=== PATIENT | female | born 1940 | race African-American/Black ===

== ENCOUNTER 2025-07-30 15:40 | Emergency (ER) | payer OTHER ==
[~2025-07-30] VITALS: Ht 165.1 cm; Wt 73.0 kg
[2025-07-30 15:47] VITALS: O2SAT 97
[2025-07-30 16:53] LABS: BASOPHILS % 0.0 % (0.0-2.0); EOSINOPHILS % 0.0 % (0.0-5.0); HEMATOCRIT. 37.8 % (36.0-48.0); HEMOGLOBIN. 12.0 g/dL (12.0-16.0); LYMPHOCYTES % 7.9 % (20.0-50.0); MEAN PLATELET VOLUME 10.4 fl (7.4-10.4); MONOCYTES % 8.3 % (2.0-8.0); NEUTROPHILS % 83.8 % (40.0-76.0); PLATELET 200 x1000/uL (130-400); RED BLOOD CELL COUNT 4.28 mill/uL (4.2-5.4); RED CELL DISTRIBUTION WIDTH 15.8 % (11.6-14.6)
[2025-07-30 17:01] LABS: CREATININE 1.8 mg/dL (0.6-1.0)
[2025-07-30 17:02] LABS: UREA NITROGEN BLOOD 47 mg/dL (9-23)
[2025-07-30 17:04] LABS: BILIRUBIN DIRECT 0.5 mg/dL (<=3.0); BILIRUBIN TOTAL 0.9 mg/dL (0.1-1.0); PROTEIN TOTAL 6.9 g/dL (6.0-8.3)
[2025-07-30 17:11] LABS: TROPONIN I HIGH SENSITIVITY 52 ng/L (3.0-34)
[2025-07-30 17:32] LABS: ASPARTATE AMINOTRANSFERASE 1643 IU/L (<34)
[2025-07-30] MEDS: FUROSEMIDE 40MG/4ML VIAL IVP ONE (17:34)
[2025-07-30] MEDS: ASPIRIN 81MG TABLET PO ONE (17:34)
[2025-07-30 19:04] VITALS: TEMP 36.6
[2025-07-30 20:51] VITALS: BP 134/77; PULSE 93; RESP 30; O2SAT 99
== END 2025-07-30 21:16 | disposition short-term general hospital (02) ==
LOC: ER 15:40 → CANBEDREQ 18:33 → ER 21:16
DX: I11.0 Hypertensive heart disease with heart failure (principal); I50.9 Heart failure, unspecified; R06.03 Acute respiratory distress; I48.91 Unspecified atrial fibrillation; J44.89 Other specified chronic obstructive pulmonary disease; Z79.01 Long term (current) use of anticoagulants; Z88.8 Allergy status to other drugs, medicaments and biological substances
CPT/HCPCS: 99291; 96374; 76705; 80076; 80048; 83880; 85025; 84484; 36415; 71045; 93005; J1938